=== PATIENT | male | born 1990 | race Caucasian/White ===

== ENCOUNTER 2020-11-22 00:29 | Emergency (ER) | payer OTHER ==
[2020-11-22 00:36] VITALS: BP 174/84; PULSE 79; RESP 19; TEMP 98
--- NOTE | 2020-11-22 01:05 | ED ---
Skin/Abscess/FB HPI - General Chief complaint: Skin/Abscess/Foreign Body Stated complaint: [facility]- NEEDLE STICK Time Seen by Provider: 11/22/20 00:54 Source: patient, RN notes reviewed, old records reviewed Mode of arrival: ambulatory Limitations: no limitations - History of Present Illness Initial comments: This is a 30-year-old male to the ER today for evaluation. Patient presents today for evaluation regards to needlestick exposure. Patient did. Finger with likely heroin needle, heroin injecting needle. Little bleeding patient did worsens state. No other significant medical history takes no medications. MD complaint: other (Patient does have positive needlestick) -: hour(s) Location: R hand (Right thumb) Severity: mild Severity scale (1-10): 1 Quality: stabbing Consistency: constant, now resolved Improves with: none Worsens with: none Context: none Associated symptoms: denies other symptoms - Related Data Allergies Allergy/AdvReac Type Severity Reaction Status Date / Time No Known Allergies Allergy Verified 11/22/20 00:35 Review of Systems ROS Statement: Those systems with pertinent positive or pertinent negative responses have been documented in the HPI. ROS Other: All systems not noted in ROS Statement are negative. Past Medical History Past Medical History: No Reported History History of Any Multi-Drug Resistant Organisms: None Reported Past Surgical History: No Surgical Hx Reported Past Psychological History: No Psychological Hx Reported Smoking Status: Never smoker Past Alcohol Use History: Occasional Past Drug Use History: None Reported General Exam - General Exam Comments Initial Comments: Puncture wound to right thumb no active bleeding General appearance: alert, in no apparent distress Head exam: Present: atraumatic, normocephalic, normal inspection Eye exam: Present: normal appearance, PERRL, EOMI. Absent: scleral icterus, conjunctival injection, periorbital swelling ENT exam: Present: normal exam, mucous membranes moist Neck exam: Present: normal inspection. Absent: tenderness, meningismus, lymphadenopathy Respiratory exam: Present: normal lung sounds bilaterally. Absent: respiratory distress, wheezes, rales, rhonchi, stridor Cardiovascular Exam: Present: regular rate, normal rhythm, normal heart sounds. Absent: systolic murmur, diastolic murmur, rubs, gallop, clicks GI/Abdominal exam: Present: soft, normal bowel sounds. Absent: distended, tenderness, guarding, rebound, rigid Extremities exam: Present: normal inspection, full ROM, normal capillary refill. Absent: tenderness, pedal edema, joint swelling, calf tenderness Back exam: Present: normal inspection Neurological exam: Present: alert, oriented X3, CN II-XII intact Psychiatric exam: Present: normal affect, normal mood Skin exam: Present: warm, dry, intact, normal color. Absent: rash Course Vital Signs 11/22/20 00:33 Temperature 98 F Pulse Rate 79 Respiratory 19 Rate Blood Pressure 174/84 O2 Sat by Pulse 98 Oximetry - Reevaluation(s) Reevaluation #1: 11/22/20 01:05 Medical records reviewed Reevaluation #2: 11/22/20 01:06 Patient informed of results and findings, advised against post exposure prophylaxis, agrees Medical Decision Making - Medical Decision Making 30 to male to the emergency department for evaluation. Patient presents today for evaluation regards to needlestick exposure. This was a heroin [id number] son possibility of pre-existing condition on patient, patient was able to wash and clean the site, possible covert medically needle but unsure. At this time patient will not take post exposure prophylaxis and can be discharged home Disposition Clinical Impression: Needlestick injury of finger of right hand Disposition: HOME SELF-CARE Condition: Good Instructions (If sedation given, give patient instructions): Needle Stick Injuries (ED) Is patient prescribed a controlled substance at d/c from ED?: No Referrals: Kishan Garcia MD [Primary Care Provider] - 1-2 days
[2020-11-22 11:41] LABS: Hepatitis B Surface Antibody Reactive (Nonreactive); Hepatitis B Surface Antigen Nonreactive (Nonreactive); Hepatitis C IgG Antibody Nonreactive (Nonreactive)
[2020-11-22 21:39] LABS: HIV 2 AB Non-Reactive (Non-Reactive); HIV AB P24 Non-Reactive (Non-Reactive); HIV P24 AG Non-Reactive (Non-Reactive)
== END 2020-11-22 01:24 | disposition home or self-care (01) ==
LOC: EC 00:29
DX: Z77.21 Contact with and (suspected) exposure to potentially hazardous body fluids (principal)
CPT/HCPCS: 36415; 86706; 86803; 87340; 87390; 99283

== ENCOUNTER 2020-11-24 12:20 | Emergency (ER) | payer OTHER ==
[2020-11-24 12:26] VITALS: BP 131/80; RESP 16; TEMP 99
[2020-11-24] MEDS ORDERED: EMTRICITABINE/TENOFOVIR (TDF) 1 EACH, RALTEGRAVIR POTASSIUM 400 MG PO ONE ×2 (14:30)
[2020-11-24] MEDS ORDERED: RALTEGRAVIR POTASSIUM 400 MG TABLET PO ONE (14:38)
--- NOTE | 2020-11-24 14:40 | ED ---
General Adult HPI - General Source: patient, RN notes reviewed, old records reviewed Mode of arrival: ambulatory Limitations: no limitations <Tip Tsai - Last Filed: 11/24/20 14:43> <Lorin Jean - Last Filed: 11/24/20 15:37> - General Chief complaint: Needlestick/Exposure Stated complaint: [facility] Revisit/Med Refill Time Seen by Provider: 11/24/20 13:49 - History of Present Illness Initial comments: 30-year-old male presenting for HIV prophylaxis after exposure to a heroin needle, right thumb. He was sent in for prophylactic medications. His blood had been tested and was negative but the source blood was unavailable for testing. He has no complaints. (Tip Tsai) - Related Data Previous Rx's Medication Instructions Recorded Emtricitabine/Tenofovir (Tdf) 1 tab PO DAILY #28 tab 11/24/20 [Truvada 200 mg-300 mg Tablet] Raltegravir Potassium [Isentress] 400 mg PO Q12H 28 Days #56 tab 11/24/20 Allergies Allergy/AdvReac Type Severity Reaction Status Date / Time No Known Allergies Allergy Verified 11/24/20 12:22 Review of Systems ROS Other: All systems not noted in ROS Statement are negative. <Tip Tsai - Last Filed: 11/24/20 14:43> ROS Other: All systems not noted in ROS Statement are negative. <Lorin Jean - Last Filed: 11/24/20 15:37> ROS Statement: Those systems with pertinent positive or pertinent negative responses have been documented in the HPI. Past Medical History Past Medical History: No Reported History History of Any Multi-Drug Resistant Organisms: None Reported Past Surgical History: No Surgical Hx Reported Past Psychological History: No Psychological Hx Reported Smoking Status: Never smoker Past Alcohol Use History: Occasional Past Drug Use History: None Reported <Tip Tsai - Last Filed: 11/24/20 14:43> General Exam Limitations: no limitations General appearance: alert, in no apparent distress Head exam: Present: atraumatic, normocephalic Eye exam: Present: normal appearance, PERRL ENT exam: Present: normal exam Neck exam: Present: normal inspection. Absent: tenderness, meningismus Respiratory exam: Present: normal lung sounds bilaterally. Absent: respiratory distress, wheezes Cardiovascular Exam: Present: regular rate, normal rhythm GI/Abdominal exam: Present: soft. Absent: distended, tenderness, guarding Extremities exam: Present: normal inspection, normal capillary refill. Absent: pedal edema, calf tenderness Neurological exam: Present: alert, oriented X3, CN II-XII intact. Absent: motor sensory deficit Psychiatric exam: Present: normal affect, normal mood Skin exam: Present: warm, dry, intact <Tip Tsai - Last Filed: 11/24/20 14:43> Course Vital Signs 11/24/20 12:22 Temperature 99.0 F Pulse Rate 84 Respiratory 16 Rate Blood Pressure 131/80 O2 Sat by Pulse 96 Oximetry Medical Decision Making <Tip Tsai - Last Filed: 11/24/20 14:43> - Lab Data Result diagrams: 11/24/20 14:55 11/24/20 14:55 <Lorin Jean - Last Filed: 11/24/20 15:37> - Medical Decision Making I did discuss HIV prophylaxis with the pharmacist and with Dr. Muñiz covering r infectious disease. Patient will be started on 3 drug regimen. He will follow up with infectious disease for repeat testing. He's given his initial dose in the emergency department. CBC and CMP have been ordered results pending. (Tip Tsai) - Lab Data Lab Results 11/24/20 11/24/20 Range/Units 14:55 14:55 WBC 7.1 (3.8-10.6) k/uL RBC 5.75 (4.30-5.90) m/uL Hgb 17.8 H (13.0-17.5) gm/dL Hct 49.6 (39.0-53.0) % MCV 86.3 (80.0-100.0) fL MCH 30.9 (25.0-35.0) pg MCHC 35.8 (31.0-37.0) g/dL RDW 13.1 (11.5-15.5) % Plt Count 169 (150-450) k/uL MPV 7.8 Neutrophils % 76 % Lymphocytes % 16 % Monocytes % 5 % Eosinophils % 1 % Basophils % 1 % Neutrophils # 5.4 (1.3-7.7) k/uL Lymphocytes # 1.1 (1.0-4.8) k/uL Monocytes # 0.4 (0-1.0) k/uL Eosinophils # 0.1 (0-0.7) k/uL Basophils # 0.0 (0-0.2) k/uL Sodium 137 (137-145) mmol/L Potassium 4.4 (3.5-5.1) mmol/L Chloride 106 (98-107) mmol/L Carbon Dioxide 21 L (22-30) mmol/L Anion Gap 10 mmol/L BUN 25 H (9-20) mg/dL Creatinine 1.23 (0.66-1.25) mg/dL Est GFR (CKD-EPI)AfAm 90 (>60 ml/min/1.73 sqM) Est GFR (CKD-EPI)NonAf 78 (>60 ml/min/1.73 sqM) Glucose 100 H (74-99) mg/dL Calcium 10.1 (8.4-10.2) mg/dL Total Bilirubin 1.1 (0.2-1.3) mg/dL AST 46 (17-59) U/L ALT 38 (4-49) U/L Alkaline Phosphatase 71 (38-126) U/L Total Protein 7.1 (6.3-8.2) g/dL Albumin 4.7 (3.5-5.0) g/dL Disposition Is patient prescribed a controlled substance at d/c from ED?: No Time of Disposition: 14:40 <Tip Tsai N - Last Filed: 11/24/20 14:43> Is patient prescribed a controlled substance at d/c from ED?: No <Lorin Jean P - Last Filed: 11/24/20 15:37> Clinical Impression: Needlestick injury of finger of right hand Disposition: HOME SELF-CARE Condition: Good Prescriptions: Raltegravir Potassium [Isentress] 400 mg PO Q12H 28 Days #56 tab Emtricitabine/Tenofovir (Tdf) [Truvada 200 mg-300 mg Tablet] 1 tab PO DAILY #28 tab Referrals: Kishan Garcia MD [Primary Care Provider] - 1-2 days
[2020-11-24 15:28] LABS: Albumin 4.7 g/dL (3.5-5.0); Calcium 10.1 mg/dL (8.4-10.2); Potassium 4.4 mmol/L (3.5-5.1); Total Bilirubin 1.1 mg/dL (0.2-1.3); Total Protein 7.1 g/dL (6.3-8.2)
[2020-11-24 15:30] LABS: Basophils % (A) 1 %; Eosinophils # (A) 0.1 k/uL (0-0.7); Eosinophils % (A) 1 %; HCT 49.6 % (39.0-53.0); HGB 17.8 gm/dL (13.0-17.5); Lymphocytes # (A) 1.1 k/uL (1.0-4.8); Lymphocytes % (A) 16 %; MCH 30.9 pg (25.0-35.0); MCHC 35.8 g/dL (31.0-37.0); MCV 86.3 fL (80.0-100.0); Mean Platelet Volume 7.8; Monocytes # (A) 0.4 k/uL (0-1.0); Monocytes % (A) 5 %; Neutrophils # (A) 5.4 k/uL (1.3-7.7); Neutrophils % (A) 76 %; Platelet Count 169 k/uL (150-450); RBC 5.75 m/uL (4.30-5.90); RDW 13.1 % (11.5-15.5); WBC 7.1 k/uL (3.8-10.6)
[2020-11-24 15:54] VITALS: PULSE 89
== END 2020-11-24 15:54 | disposition home or self-care (01) ==
LOC: EC 12:20
DX: S61.031A Puncture wound without foreign body of right thumb without damage to nail, initial encounter (principal); W46.1XXA Contact with contaminated hypodermic needle, initial encounter
CPT/HCPCS: 36415; 80053; 85025; 99283